=== PATIENT | female | born 1995 | race Caucasian/White ===

== ENCOUNTER 2022-07-10 11:44 | Emergency (ER) | payer MEDICAID ==
[~2022-07-10] VITALS: Ht 170.2 cm; Wt 155.0 kg
[2022-07-10 11:53] VITALS: BP 171/72
[2022-07-10] MEDS ORDERED: TOPUD PO (16:44)
== END 2022-07-10 17:04 | disposition home or self-care (01) ==
LOC: ER 11:44
DX: S01.01XA Laceration without foreign body of scalp, initial encounter (principal); R03.0 Elevated blood-pressure reading, without diagnosis of hypertension; E03.9 Hypothyroidism, unspecified; W20.8XXA Other cause of strike by thrown, projected or falling object, initial encounter; Y93.89 Activity, other specified; Y92.89 Other specified places as the place of occurrence of the external cause; Y99.0 Civilian activity done for income or pay; Z98.890 Other specified postprocedural states
CPT/HCPCS: 12001; 81025; 99282; Z7610